=== PATIENT | female | born 2005 ===

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

== ENCOUNTER → 2024-08-14 | Outpatient (CLI) | payer OTHER | LOC: LAB SHORT 16:37 → LAB 16:37 | DX: R30.0 Dysuria (principal); R35.0 Frequency of micturition; R31.9 Hematuria, unspecified | CPT/HCPCS: 87077; 87086; 87147; 87186 ==